=== PATIENT | male | born 1990 | race Caucasian/White ===

== ENCOUNTER 2017-02-22 11:31 | Emergency (ER) | payer MEDICARE, MEDICAID ==
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
--- NOTE | 2017-02-22 12:40 | Diagnostic Imaging Report ---
Chest x-ray 2 views HISTORY:Pain The overall heart size is normal. No focal pulmonary processes. No hilar or mediastinal abnormalities. IMPRESSION: No acute abnormalities.
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
== END 2017-02-22 14:05 | disposition still patient (30) ==
LOC: ER 11:31
DX: S80.212A Abrasion, left knee, initial encounter (principal); S80.211A Abrasion, right knee, initial encounter; H61.23 Impacted cerumen, bilateral; F17.200 Nicotine dependence, unspecified, uncomplicated; Y08.89XA Assault by other specified means, initial encounter; Y93.89 Activity, other specified; Y92.89 Other specified places as the place of occurrence of the external cause; Y99.8 Other external cause status
CPT/HCPCS: 70450-TC; 71020-TC; 72040-TC; Z7502